=== PATIENT | female | born 1940 | race Asian ===

== ENCOUNTER → 2024-07-14 13:03 | Outpatient (REF) | payer OTHER, SELFPAY ==
[2024-07-14 13:38] VITALS: BP 153/63; BP_SYST 81
[2024-07-14 15:10] VITALS: BP 174/74
== END ==
LOC: RADI 13:03
PROVIDERS: ATTENDING PHYSICIAN Specialist
DX: T82.49XA Other complication of vascular dialysis catheter, initial encounter (principal); N18.6 End stage renal disease; Z99.2 Dependence on renal dialysis; Y82.8 Other medical devices associated with adverse incidents
CPT/HCPCS: 36581; 77001; C1750; C1769

== ENCOUNTER 2024-12-05 15:21 | Emergency (ER) | payer OTHER, SELFPAY ==
[2024-12-05 15:35] VITALS: BP 163/84
--- NOTE | 2024-12-05 19:03 | ED.MUSCINJ ---
HPI-Injury
General
Chief Complaint: Fall
Source: patient
Exam Limitations: none
Time Seen by Provider: 12/05/24 17:09
Nursing documentation reviewed up to this point in time: agreed with
History of Present Illness-Injury
Is this injury a work related problem?: No
Is pt an associate of [facility]/[place]?: No
Initial Injury comments:
Patient states she tripped and fell in home. Hit face on floor. No LOC. Has large hematoma to left forehead and orbit. Complains of pain to neck and left shoulder. Injury occurred just [employer]. To ED accompanied by family for eval
Past History
Past History
ED Past Medical History: HTN, Renal failure and Hypothyroidism
Review of Systems
Review of Systems
Allergies reviewed?: Yes
All Other Systems: ROS reviewed and negative except as documented in HPI and ROS
Constitutional: Reports no symptoms
EENT: Reports no symptoms
Respiratory: Reports no symptoms
Cardiac: Reports no symptoms
ABD/GI: Reports no symptoms
: Reports no symptoms
Musculoskeletal: Reports joint pain (Pain to left shoulder)
Skin: Reports other (Hematoma to left forhead and orbit)
Neurological: Reports no symptoms
Psychiatric: Reports no symptoms
Musculoskeletal Injury Exam
Musculoskeletal Injury Exam
Left Shoulder:
Pain with Movement?: Moderate
Tender to palpation?: Moderate
Soft tissue swelling?: None
External deformity and angulation?: None
Joint effusion?: None
Contusion?: Moderate
Hematoma-local bleeding into tissue?: None
Strain- Sprain- Tear (Connective tissue injury)?: Moderate
Crepitus with movement?: No
Joint instability?: No
Malalignment/deformity?: No
Range of motion: Limited
Distal skin color and temperature: normal-warm & good color
Capillary Refill: normal
Normal distal neurovascular exam?: Yes
Peripheral Pulses: radial (left): 3+
Posterior Neck:
Pain with Movement?: Mild
Tender to palpation?: Mild
Soft tissue swelling?: None
External deformity and angulation?: None
Joint effusion?: None
Contusion?: None
Hematoma-local bleeding into tissue?: None
Strain- Sprain- Tear (Connective tissue injury)?: Mild
Crepitus with movement?: No
Joint instability?: No
Malalignment/deformity?: No
Range of motion: Full
Distal skin color and temperature: normal-warm & good color
Capillary Refill: normal
Normal distal neurovascular exam?: Yes
Phy Exam
General Physical Exam
General Presentation: moderate distress
General age: appears stated age
General Skin: warm and dry
General Habitus: normal
General Mental: alert
Eye Exam
Eye Exam: PERRL and EOMI
Neurological Exam
Neurological Exam: alert, oriented x3, CN II-XII intact, no motor deficits, no sensory deficits and speech normal
[place] Coma Scale
Eye Opening: Spontaneous
Verbal Response: Oriented
Motor Response: Obeys Commands
GCS Total Score: 15
Musculoskeletal Exam
Musculoskeletal Exam: neuro vasc intact and other (Pain with movement left shoulder. FUll ROM to elbow, wrist and hand)
Skin Exam
Skin Exam: warm/dry, no rash and other (large hematoma left forehead, left orbit)
Psychiatric Exam
Psychiatric Exam: normal mood/affect
Injury Course
Orders/Labs/Results
Orders:
Orders
12/05/24 17:50
CT Head W/o Iv Contrast Urgent
Comment:
Reason For Exam: fall
CT Orbits W/o Iv Contrast Urgent
Comment:
Reason For Exam: fall
Cervical Spine wo Contrast CT [CT Cervical Spine W/o Iv Contr] Urgent
Comment:
Reason For Exam: fall
Shoulder, Left, Trauma CR [CR Shoulder, Trauma - Left] Urgent
Comment:
Reason For Exam: fall
12/05/24 17:51
CR Chest - 2 Views Urgent
Comment:
Reason For Exam: fall
12/05/24 19:00
Acetaminophen [Tylenol] 1,000 mg PO NOW STA
*Radiology
Radiology exam reviewed: radiology read reviewed
*Pulse Oximetry
Patient hypoxic: no
*Critical Care Note
Total Time (30-74mins, 75-104mins- exclusive of procedures): Not Applicable
Update Note
Update Note:
Head, orbit, neck CT withour concerning findings. No evidence of fracture to shoulder on xray. Will dishcarge home with family. WIll follow up with PCP on Saturday,
ED Attending Note
-
Portions of this chart may have been created with voice recognition software.� Occasional wrong word or��sound alike� substitutions may have occurred due to the inherent limitations of voice recognition software.
Discharge Plan
Departure
Patient Disposition: Home (Routine Discharge)
Date of Disposition: 12/05/24
Time of Disposition: 19:01
Patient with high blood pressure during this ER visit?: No
Condition: Good
Covid-19: Not Applicable
Discharge Problem:
Head injury, Contusion of face, Shoulder sprain
Instructions: Head Injury in Adults (DC), Contusion (DC), Preventing falls in adults, Shoulder Sprain (DC), Using Cold for Pain
Prescriptions:
No Action
bumetanide 2 mg Tablet
2 mg PO DAILY
metoprolol succinate 50 mg Tablet Extended Release 24 Hr
50 mg PO DAILY
famotidine 20 mg Tablet
20 mg PO DAILY PRN (Reason: GERD)
calcitriol 0.25 mcg Capsule
0.25 mcg PO .3TIMESWEEKLY
sevelamer carbonate [Renvela] 800 mg Tablet
2,400 mg PO TID
levothyroxine 50 mcg Capsule
50 mcg PO DAILY
aspirin 81 mg Capsule
81 mg PO DAILY
Vitamin B-12 25 mcg Tablet
25 mcg PO DAILY
Referrals:
Ciaran Morrell DO [Family Provider] - Follow up in 2-3 days
Interventions
Interventions:
*Risk Screen - Suicide Last Done: 12/05/24 15:35
*Neglect/Abuse Screening Last Done: 12/05/24 15:35
Discharge Date and Time
Print Language: BELIZEAN
[2024-12-05] MEDS: TYLENOL 1000 MG PO (19:27)
== END 2024-12-05 19:40 | disposition home or self-care (01) ==
LOC: EMR 15:21
PROVIDERS: EMERGENCY PHYSICIAN Emergency Medicine; FAMILY PHYSICIAN Family Medicine Adult Medicine
DX: S09.90XA Unspecified injury of head, initial encounter (principal); S00.03XA Contusion of scalp, initial encounter; S43.402A Unspecified sprain of left shoulder joint, initial encounter; W01.0XXA Fall on same level from slipping, tripping and stumbling without subsequent striking against object, initial encounter; Y92.009 Unspecified place in unspecified non-institutional (private) residence as the place of occurrence of the external cause; I10 Essential (primary) hypertension; E03.9 Hypothyroidism, unspecified
CPT/HCPCS: 99284; 70450; 70480; 71046; 72125; 73030

== ENCOUNTER 2024-12-21 14:53 | Emergency (ER) | payer OTHER, SELFPAY ==
[2024-12-21 14:56] VITALS: BP 203/78
[2024-12-21 15:00] VITALS: BP 190/82
[2024-12-21 15:08] LABS: % Basophils 0.5 % (0-2); % Eosinophils 2.7 % (0-6); % Immature Granulocytes 0.5 % (0-0.5); % Lymphocytes 23.8 % (20.5-51.1); % Monocytes 7.9 % (1.7-9.3); % Neutrophils 64.6 % (42.2-75.2); Absolute Eosinophils 0.2 10^3/uL (0-0.7); Absolute Lymphocytes 1.8 10^3/uL (1.2-3.4); Absolute Monocytes 0.6 10^3/uL (0.1-0.6); Hematocrit 32.7 % (37.0-47.0); Hemoglobin 11.1 g/dL (12.0-16.0); Mean Corp Hgb Conc. 33.9 g/dL (33.0-37.0); Mean Corpuscular Hgb 31.6 pg (27.0-31.0); Mean Corpuscular Volume 93.2 fL (81.0-99.0); Mean Platelet Volume 10.7 fL (7.4-10.4); Nucleated Red Blood Cells % 0 %; Platelet Count 202 10^3/uL (130-400); Red Blood Cell Count 3.51 10^6/uL (4.20-5.40); Red Cell Dist. Width 13.7 % (11.5-14.5); White Blood Cell Count 7.7 10^3/uL (4.8-10.8)
[2024-12-21 15:30] LABS: ALT (SGPT) 18 U/L (0-35); AST (SGOT) 26 U/L (14-36); Albumin 4.7 g/dl (3.5-5.0); Alkaline Phosphatase 105 U/L (38-126); Blood Urea Nitrogen 21 mg/dl (7-17); Calcium 9.1 mg/dl (8.4-10.2); Carbon Dioxide 28 mmol/L (22-30); Chloride 94 mmol/L (98-107); Glucose 123 mg/dl (70-99); Potassium 3.6 mmol/L (3.5-5.1); Sodium 135 mmol/L (135-145); Total Bilirubin 0.8 mg/dl (0.2-1.3); Total Protein 8.4 g/dl (6.3-8.2); eGFR 12.95
[2024-12-21 15:31] LABS: Troponin I < 0.012 ng/ml
[2024-12-21 16:00] VITALS: BP 162/78
--- NOTE | 2024-12-21 16:17 | ED.GENMED ---
History of Present Illness
General
Chief Complaint: Blood Pressure Problem
Source: patient
Exam Limitations: none
Time Seen by Provider: 12/21/24 15:35
Nursing documentation reviewed up to this point in time: agreed with
History of Present Illness
History of Present Illness:
Patient with history of end-stage renal disease on hemodialysis (Saturday, Saturday, Saturday), presents to ED from dialysis center where her blood pressure was noted to be extremely elevated, with systolic blood pressure greater than 200. Per patient
and daughter at bedside, patient has had fluctuating blood pressure during dialysis in the past. Denies chest pain or headache. Denies dizziness. Denies shortness of breath. Denies nausea vomiting. Patient currently take metoprolol, amlodipine,
and valsartan as an outpatient. Denies recent illness. Denies recent change in medications or diet.
Past History
Past History
ED Past Medical History: HTN, Renal failure and Hypothyroidism
Review of Systems
Review of Systems
Allergies reviewed?: Yes
All Other Systems: ROS reviewed and negative except as documented in HPI and ROS
Constitutional: Reports no symptoms; Denies fever
Respiratory: Reports no symptoms; Denies trouble breathing
Cardiac: Denies chest pain
ABD/GI: Reports no symptoms; Denies nausea or vomiting
Musculoskeletal: Reports no symptoms
Skin: Reports no symptoms
Neurological: Reports no symptoms; Denies dizzy or headache
Phy Exam
Physical Exam
Physical Exam:
Physical Exam
General: no apparent distress, not acutely ill. afebrile
Head: nc/at. eomi
Neck: supple. normal range of motion.
Heart: s1/s2 regular rate and rhythm, no murmur.
Lungs: no acute respiratory distress. clear bilaterally
Abdomen: normal bowel sounds. not tender.
Neuro: alert and oriented x 3. no focal neurological deficits
Skin: no rash
Psychiatric: well kept. interactive and cooperative
Extremities: no edema. no calf tenderness.
Course
Orders/Labs/Results
Orders:
Orders
12/21/24 15:00
ECG [Electrocardiogram (*1)] Urgent
Reason for Study: Hypertension, Benign
EKG- Treatment ONCE
12/21/24 15:01
Complete Blood Count/With Diff Urgent
Comprehensive Metabolic Panel Urgent
Troponin I Urgent
Abnormal Lab Results
12/21/24
15:01
RBC 3.51 L 10^6/uL
(4.20-5.40)
Hgb 11.1 L g/dL
(12.0-16.0)
Hct 32.7 L %
(37.0-47.0)
MCH 31.6 H pg
(27.0-31.0)
MPV 10.7 H fL
(7.4-10.4)
Chloride 94 L mmol/L
(98-107)
BUN 21 H mg/dl
(7-17)
Creatinine 3.4 H mg/dL
(0.6-1.0)
Glucose 123 H mg/dl
(70-99)
Total Protein 8.4 H g/dl
(6.3-8.2)
12/21/24 15:01
12/21/24 15:01
Vital Signs
Initial and Last Documented VS:
Initial Vital Signs
Temp Pulse Resp BP Pulse Ox
97.4 F 95 20 203/78 99
12/21/24 14:56 12/21/24 14:56 12/21/24 14:56 12/21/24 14:56 12/21/24 14:56
Last Documented Vital Signs
Temp Pulse Resp BP Pulse Ox
97.4 F 91 18 162/78 99
12/21/24 14:56 12/21/24 16:30 12/21/24 16:30 12/21/24 16:00 12/21/24 16:30
MDM/Problems Addressed
MDM/Problems Addressed:
Patient with gradual improvement in blood pressure during observation, and remains asymptomatic. As such, patient will be discharged home at this time. Patient did receive full dialysis session today prior to transfer. Patient will continue to
take home medications, as prescribed, along with PCP follow-up as an outpatient.
*Critical Care Note
Total Time (30-74mins, 75-104mins- exclusive of procedures): Not Applicable
ED Attending Note
-
Portions of this chart may have been created with voice recognition software.� Occasional wrong word or��sound alike� substitutions may have occurred due to the inherent limitations of voice recognition software.
Discharge Plan
Departure
Patient Disposition: Home (Routine Discharge)
Date of Disposition: 12/21/24
Time of Disposition: 16:22
Patient with high blood pressure during this ER visit?: Yes
Condition: Good
Discharge Problem:
Hypertension
Instructions: High Blood Pressure (DC)
Prescriptions:
No Action
bumetanide 2 mg Tablet
2 mg PO DAILY
metoprolol succinate 50 mg Tablet Extended Release 24 Hr
50 mg PO DAILY
famotidine 20 mg Tablet
20 mg PO DAILY PRN (Reason: GERD)
calcitriol 0.25 mcg Capsule
0.25 mcg PO .3TIMESWEEKLY
sevelamer carbonate [Renvela] 800 mg Tablet
2,400 mg PO TID
levothyroxine 50 mcg Capsule
50 mcg PO DAILY
aspirin 81 mg Capsule
81 mg PO DAILY
Vitamin B-12 25 mcg Tablet
25 mcg PO DAILY
Referrals:
Ciaran Morrell DO [Family Provider] -
Activity Restrictions/Additional Instructions:
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
Interventions
Interventions:
*General Assessment Last Done: 12/21/24 14:56
ED- Fall Risk Assessment Last Done: 12/21/24 14:58
*Nursing Disposition Last Done: 12/21/24 16:41
ED- Cardiac Assessment Last Done: 12/21/24 14:58
ED- Neurological Assessment Last Done: 12/21/24 14:58
ED- Pulmonary Assessment Last Done: 12/21/24 14:58
Discharge Date and Time
Discharge Date/Time: 12/21/24 16:41
Print Language: CHILEAN
== END 2024-12-21 16:41 | disposition home or self-care (01) ==
LOC: EMR 14:53
PROVIDERS: EMERGENCY PHYSICIAN Emergency Medicine; FAMILY PHYSICIAN Family Medicine Adult Medicine
DX: I12.0 Hypertensive chronic kidney disease with stage 5 chronic kidney disease or end stage renal disease (principal); N18.6 End stage renal disease; Z99.2 Dependence on renal dialysis
CPT/HCPCS: 99284; 80053; 84484; 85025; 93005

== ENCOUNTER 2025-01-11 08:56 | Emergency (ER) | payer OTHER, SELFPAY ==
[2025-01-11 09:02] VITALS: BP 142/65
--- NOTE | 2025-01-11 09:41 | ED.GENMED ---
History of Present Illness
General
Chief Complaint: Back Pain
Source: patient
Exam Limitations: none
Time Seen by Provider: 01/11/25 09:31
History of Present Illness
History of Present Illness:
84-year-old female Saturday dialysis patient presents with lower back pain and upper leg pain after a fall she sustained sometime last week. She is uncertain exactly when she fell. She also fell and hit her head. She was due for
dialysis today however she was in so much pain she was having trouble getting to her car to get there. She has been using Tylenol for the pain. No numbness to the legs. No other
Past History
Past History
ED Past Medical History: HTN, Renal failure and Hypothyroidism
Phy Exam
Physical Exam
Physical Exam:
General: Well-appearing female no acute respiratory distress
HEENT: Normocephalic atraumatic
Heart: Regular rate and rhythm
Lungs: Clear no wheeze
Abdomen soft send slightly tender in the lower abdomen bilaterally and suprapubic region.
Musculoskeletal exam: No deformities noted to the legs. Increased pain with motion of bilateral hips. Mildly diffusely tender about the lumbar spine
Extremities: No cyanosis or edema
Course
Orders/Labs/Results
Orders:
Orders
01/11/25 09:41
CT Abd/pel Without Iv Or Oral Urgent
Comment:
Reason For Exam: fall, back/pelvic pain, lower abdominal pain
01/11/25 09:42
CT Head W/o Iv Contrast Urgent
Comment:
Reason For Exam: fall
01/11/25 09:44
Acetaminophen [Tylenol] 1,000 mg PO NOW STA
01/11/25 10:51
Diazepam [Valium] 5 mg PO NOW STA
01/11/25 10:52
PT Consult [Pt Eval And Treat] Urgent
Activity Level: Ambulate
Vital Signs
Initial and Last Documented VS:
Initial Vital Signs
Temp Pulse Resp BP Pulse Ox
97.6 F 64 16 142/65 98
01/11/25 09:02 01/11/25 09:02 01/11/25 09:02 01/11/25 09:02 01/11/25 09:02
Last Documented Vital Signs
Temp Pulse Resp BP Pulse Ox
97.6 F 64 16 146/52 98
01/11/25 09:02 01/11/25 09:02 01/11/25 09:02 01/11/25 11:18 01/11/25 09:02
MDM/Problems Addressed
Differential Diagnosis Includes:
Fall with lower back lower abdominal and upper leg pain. Also with head strike. This is in a dialysis patient that missed dialysis today secondary to the pain she was in. Family has been in contact with the dialysis center. They still labial to
get her in this afternoon.
*Critical Care Note
Total Time (30-74mins, 75-104mins- exclusive of procedures): Not Applicable
Update Note
Update Note:
Patient seen by physical therapy ambulated with minimal assist. She was drowsy after receiving Valium. She slept some after the Valium but shared decision making occurred between family and patient regarding treatment options. They wish to try to
get her to dialysis today. Recommend only using Tylenol home And the sedative effects of Valium offered here. I presume narcotics would do the same. Also recommend lidocaine patches. Stable for discharge
ED Attending Note
-
Portions of this chart may have been created with voice recognition software.� Occasional wrong word or��sound alike� substitutions may have occurred due to the inherent limitations of voice recognition software.
Discharge Plan
Departure
Patient Disposition: Home (Routine Discharge)
Date of Disposition: 01/11/25
Time of Disposition: 12:11
Patient with high blood pressure during this ER visit?: No
Discharge Problem:
Back pain
Instructions: Radiculopathy (DC)
Prescriptions:
No Action
bumetanide 2 mg Tablet
2 mg PO DAILY
metoprolol succinate 50 mg Tablet Extended Release 24 Hr
50 mg PO DAILY
famotidine 20 mg Tablet
20 mg PO DAILY PRN (Reason: GERD)
calcitriol 0.25 mcg Capsule
0.25 mcg PO .3TIMESWEEKLY
sevelamer carbonate [Renvela] 800 mg Tablet
2,400 mg PO TID
levothyroxine 50 mcg Capsule
50 mcg PO DAILY
aspirin 81 mg Capsule
81 mg PO DAILY
Vitamin B-12 25 mcg Tablet
25 mcg PO DAILY
Referrals:
Ciaran Morrell DO [Family Provider] -
Activity Restrictions/Additional Instructions:
Continue with lidocaine patches and Tylenol at home. Please go to dialysis today as planned. Return if needed otherwise
Interventions
Interventions:
ED-Musculoskeletal Assessment Last Done: 01/11/25 09:38
Discharge Date and Time
Print Language: ROMANIAN
[2025-01-11] MEDS: TYLENOL 1000 MG PO (09:51)
[2025-01-11] MEDS: VALIUM 5 MG PO (10:57)
[2025-01-11 11:18] VITALS: BP 146/52
[2025-01-11 11:31] VITALS: BP 146/57; BP 171/63
[2025-01-11 12:00] VITALS: BP 133/58
== END 2025-01-11 12:44 | disposition home or self-care (01) ==
LOC: EMR 08:56
PROVIDERS: EMERGENCY PHYSICIAN Student in an Organized Health Care Education/Training Program; FAMILY PHYSICIAN Family Medicine Adult Medicine
DX: S09.90XA Unspecified injury of head, initial encounter (principal); M54.50 Low back pain, unspecified; W19.XXXA Unspecified fall, initial encounter; E03.9 Hypothyroidism, unspecified; I12.0 Hypertensive chronic kidney disease with stage 5 chronic kidney disease or end stage renal disease; N18.6 End stage renal disease; Z99.2 Dependence on renal dialysis
CPT/HCPCS: 99284; 70450; 74176